=== PATIENT | female | born 1970 ===

== ENCOUNTER 2018-05-06 13:45 | Emergency (ER) | payer OTHER ==
--- NOTE | 2018-05-06 14:05 | UC ---
Skin Complaint HPI - HPI Summary HPI Summary: This patient is a 47 year old F [place] [facility] [place] possible tick bite on the posterior right thigh that she noticed last night. The patient was in the [employer] yesterday and began having itching/burning on the back of her thigh. Pt states "she is from [place] and they do not have tick there." She is worried that she scratched the body off the tick and the head might be left in here. She was up last night watching videos on the internet and is now concerned. - History of Current Complaint Time Seen by Provider: 05/06/18 13:48 Stated Complaint: TICK BITE Hx Obtained From: Patient Onset/Duration: Lasting Days, Still Present Skin Exposure Onset/Duration: Days Ago Timing: Constant Onset Severity: Mild Current Severity: Mild Pain Intensity: 0 Pain Scale Used: 0-10 Numeric Location: Other - right posterior thigh Character: Painful Associated Signs & Symptoms: Negative: Fever Review of Systems Constitutional: Negative - fever Skin: Other - itching/burning and possible tick bite All Other Systems Reviewed And Are Negative: Yes PMH/Surg Hx/FS Hx/Imm Hx Previously Healthy: Yes Other History Of: Negative For: Hepatitis C, Anticoagulant Therapy - Family History Known Family History: Positive: Diabetes - Social History Lives: With Family Alcohol Use: Occasionally Substance Use Type: None Smoking Status (MU): Never Smoked Tobacco Physical Exam - Summary Physical Exam Summary: General: well-appearing, no pain distress Skin: warm, color reflects adequate perfusion, dry Head: normal Eyes: EOMI, REYNA ENT: normal Neck: supple, nontender Respiratory: CTA, breath sounds present Cardiovascular: RRR Abdomen: soft, nontender Bowel: present Musculoskeletal: normal, strength/ROM intact Neurological: sensory/motor intact, A&O x3 Psychological: affect/mood appropriate Triage Information Reviewed: Yes Vital Signs Reviewed: Yes Discharge - Sign-Out/Discharge Documenting (check all that apply): Patient Departure - Discharge Plan Referrals: No Primary Care Phys,NOPCP [Primary Care Provider] - Additional Instructions: FOLLOW UP WITH YOUR DOCTOR. GET RECHECKED FOR ANY WORSENING OF YOUR CONDITION OR QUESTIONS OR CONCERNS.
[2018-05-06 14:33] VITALS: BP 116/83
== END 2018-05-06 14:30 | disposition home or self-care (01) ==
LOC: UCEAST 13:45
DX: L29.8 Other pruritus (principal)
CPT/HCPCS: 99202; G0463